=== PATIENT | female | born 1980 | race Caucasian/White ===

== ENCOUNTER → 2018-03-21 14:01 | Outpatient (CLI) | payer BC, SELFPAY ==
--- NOTE | 2018-03-21 14:27 | NVE_ITS ---
Venous Exam Indications: 729.5 Pain in limb. Pt has a visible, palable knot by right kim, no injury. IMPRESSIONS 1. There is no evidence of significant Reflux. 2. No evidence of deep or superficial vein thrombosis involving the right lower extremity Right lower extremity venous duplex evaluation. Doppler flow study including spectral analysis, color and mccain scale imaging. Location: Vascular laboratory. Patient status: Outpatient. Tables: Venous flow and imaging: + +-------+ + Location Overall Flow properties + +-------+ + Right common femoral Patent Normal phasicity; spontaneous; normal augmentation; compressible + +-------+ + Right saphenofemoral junction Patent Compressible + +-------+ + Right profunda femoral Patent Compressible + +-------+ + Right femoral Patent Normal phasicity; spontaneous; normal augmentation; compressible + +-------+ + Right greater saphenous Patent Normal phasicity; spontaneous; normal augmentation; compressible + +-------+ + Right popliteal Patent Normal phasicity; spontaneous; normal augmentation; compressible + +-------+ + Right posterior tibial Patent Compressible + +-------+ + Right peroneal Patent Compressible + +-------+ + Right gastrocnemius Patent Compressible + +-------+ + Right soleal Patent Compressible + +-------+ + (Report amended ) Electronically signed by: Camilo Tran [id number]
== END ==
PROVIDERS: PCP Family Medicine; Visit Provider Nurse Practitioner Family
DX: R22.40 Localized swelling, mass and lump, unspecified lower limb (principal)
CPT/HCPCS: 93971

== ENCOUNTER 2018-09-24 16:13 | Inpatient (IN) ==
[2018-09-24 17:01] LABS: Basophils % 0.3 % (0.1-2.0); Eosinophils # 0.1 K/mm3 (0.0-0.4); Eosinophils % 1.2 % (0.1-12.0); Hematocrit 43.2 % (37.0-47.0); Hemoglobin 14.2 g/dL (12.2-16.2); Lymphocytes # 3.1 K/mm3 (0.7-4.5); Lymphocytes % 31.4 % (10-50); Mean Corpuscular HGB Conc 32.9 g/dL (31.8-35.4); Mean Corpuscular Hemoglobin 30.1 pg (27.0-31.2); Mean Corpuscular Volume 91.6 fl (81-99); Mean Platelet Volume 6.5 fl (7.4-10.4); Monocytes # 0.4 K/mm3 (0.1-1.0); Monocytes % 4.1 % (1.7-9.3); Neutrophils # 6.3 K/mm3 (1.8-7.8); Neutrophils % 63.1 % (37.0-80.0); Platelet Count 353 K/mm3 (142-424); Red Blood Count 4.71 M/mm3 (4.20-5.40); Red Cell Distribution Width 12.6 % (11.5-17.5); White Blood Count 9.9 K/mm3 (4.8-10.8)
[2018-09-24 17:14] LABS: Albumin/Globulin Ratio 1.1 (1.1-1.8); Anion Gap 14.1 mEq/L (5-15); Bilirubin,Total 0.5 mg/dL (0.2-1.0); Calcium 8.4 mg/dL (8.5-10.1); Globulin 3.7 gm/dl (1.3-3.2); Potassium 4.1 mmoL/L (3.5-5.1); Total Protein,Serum 7.7 gm/dL (6.4-8.2)
--- NOTE | 2018-09-24 18:05 | Emergency Department Note ---
ED Disposition Condition on Discharge: Fair - Critical Care Critical Care Time: No <Timmy Padilla - Last Filed: 09/24/18 20:44> Condition on Discharge: Fair <KasiafrankieKendall - Last Filed: 09/24/18 22:20> Clinical Impression: Sinus headache, History of meningitis, Meningitis Disposition: Still a Patient Attestation: On 09/24/18, the high probability of a clinically significant, sudden or life threatening deterioration of the following system(s) required my full and direct attention, intervention and personal management. The time I documented below is in addition to time spent performing reported procedures but includes the following listed in this critical care notation. Medical Decision Making - Cristian Inquiry Pt receiving controlled substance: No Cristian was queried for this patient: No - Lab Data Result diagrams: 09/24/18 16:47 09/24/18 16:47 - CT Data CT Scan: Head Time Received: 19:[address] Reviewed: Yes: I have viewed the radiologist's interpretation Preliminary Findings: Normal/NAD <Timmy Padilla - Last Filed: 09/24/18 20:44> - Lab Data Result diagrams: 09/24/18 16:47 09/24/18 16:47 - Physician Consults Physician Consulted: Yue hanson [facility] Time: 22:00 Reason -: Admission Comment/Response: Agrees to admit the patient to the hospital. We discussed the patient's clinical information, including history, exam, laboratory and radiology results and ED course. Per hospital procedure, I will write temporary bridge inpatient orders on the patient. Specific orders requested by the admitting physician: Antibiotics and pain medication pending cultures <Kendall Romero - Last Filed: 09/24/18 22:20> Vital Signs: 09/24/18 16:32 09/24/18 16:43 09/24/18 19:26 Temperature 98.5 F 98.5 F Temperature Source Oral Oral Pulse Rate [Orthostatic Lying Right Radial] 74 Pulse Rate [Orthostatic Sitting Right Radial] 85 Pulse Rate [Orthostatic Standing Right Radial] 97 H Pulse Rate [Right Brachial] 107 H 107 H Respiratory Rate 20 20 Blood Pressure [Left Arm] 140/87 Blood Pressure [Orthostatic Lying Left Arm] 127/82 Blood Pressure [Orthostatic Sitting Left Arm] 140/90 Blood Pressure [Right Arm] 142/105 H 142/105 H Blood Pressure Mean [Right Arm] 117 117 Blood Pressure Source [Right Arm] Automatic Cuff Automatic Cuff Blood Pressure Position [Right Arm] Sitting Sitting 02 Sat by Pulse Oximetry 99 99 Oxygen Delivery Method Room Air Room Air 09/24/18 19:42 Temperature Temperature Source Pulse Rate [Orthostatic Lying Right Radial] Pulse Rate [Orthostatic Sitting Right Radial] Pulse Rate [Orthostatic Standing Right Radial] Pulse Rate [Right Brachial] 77 Respiratory Rate 12 Blood Pressure [Left Arm] Blood Pressure [Orthostatic Lying Left Arm] Blood Pressure [Orthostatic Sitting Left Arm] Blood Pressure [Right Arm] 132/77 Blood Pressure Mean [Right Arm] 95 Blood Pressure Source [Right Arm] Automatic Cuff Blood Pressure Position [Right Arm] Supine 02 Sat by Pulse Oximetry 100 Oxygen Delivery Method Room Air - Lab Data Lab Results 09/24/18 16:47: WBC 9.9, RBC 4.71, Hgb 14.2, Hct 43.2, MCV 91.6, MCH 30.1, MCHC 32.9, RDW 12.6, Plt Count 353, MPV 6.5 L, Neut % (Auto) 63.1, Lymph % (Auto) 31.4, [place] % (Auto) 4.1, Eos % (Auto) 1.2, Baso % (Auto) 0.3, Neut # (Auto) 6.3, Lymph # (Auto) 3.1, [place] # (Auto) 0.4, Eos # (Auto) 0.1, Baso # (Auto) 0.0 09/24/18 16:47: Sodium 140, Potassium 4.1, Chloride 104, Carbon Dioxide 26, Anion Gap 14.1, BUN 9, Creatinine 0.75, Estimated Creat Clear 91, Estimated GFR 86, Est GFR ( Amer) 105, Glucose 98, Calcium 8.4 L, Total Bilirubin 0.5, AST 12 L, ALT 22, Alkaline Phosphatase 50, Total Protein 7.7, Albumin 4.0, Globulin 3.7 H, Albumin/Globulin Ratio 1.1 09/24/18 16:47: Serum HCG, Qual Negative 09/24/18 20:40: CSF Volume 10, CSF Appearance Clear, CSF WBC 249 H, CSF RBC 6, CSF Mononuclear WBCs % 98, CSF Polynuclear WBCs % 2 09/24/18 20:40: CSF Total Protein 87.2 H 09/24/18 20:40: CSF Glucose 48 09/24/18 22:05: Urine Color Yellow, Urine Appearance Sl cloudy, Urine pH 6.5, Ur Specific [place] 1.010, Urine Protein Negative, Urine Glucose (UA) Negative, Urine Ketones Negative, Urine Blood Negative, Urine Nitrate Negative, Urine Bilirubin Negative, Urine Urobilinogen 0.2, Ur Leukocyte Esterase 1+ A, Urine WBC 20-50, Ur Squamous Epith Cells 10-20, Urine Bacteria 2+ Orders (Tests/Meds): ED MEDICATIONS Generic Name Dose Route Start Last Admin Trade Name Homa PRN Reason Stop Dose Admin Sodium Chloride 1,000 mls @ 999 mls/hr 09/24/18 17:00 09/24/18 17:46 Sod Chlor 0.9% 1000ml Bag IV 09/24/18 18:00 999 mls/hr .Q1H1M ZULLY Administration Sodium Chloride 1,000 mls @ 999 mls/hr 09/24/18 20:45 09/24/18 20:56 Sod Chlor 0.9% 1000ml Bag IV 09/24/18 21:45 999 mls/hr .Q1H1M ZULLY Administration Ceftriaxone Sodium 2 gm/ 100 mls @ 200 mls/hr 09/24/18 22:15 Sodium Chloride IV 10/08/18 22:14 Q12H ZULLY Protocol Miscellaneous 1 each 09/24/18 22:15 Vancomycin Consult Request NOTAPPLIC 09/25/18 10:11 CONSULT PHARMACY ZULLY Discontinued Medications Generic Name Dose Route Start Last Admin Trade Name Homa PRN Reason Stop Dose Admin Butorphanol Tartrate 1 mg 09/24/18 20:44 09/24/18 20:55 Stadol 1mg/1ml Vial IV 09/24/18 20:45 1 mg ONCE ONE Administration Morphine Sulfate 2 mg 09/24/18 19:38 09/24/18 19:43 Morphine 2mg/Ml Syringe IV 09/24/18 19:39 2 mg ONCE ONE Administration ORDERS Category Date Time Status UA [Urinalysis and Microscopic] Stat Lab 09/24/18 22:05 Ordered CSF Culture & Gram Stain Stat Micro 09/24/18 20:40 Ordered Urine Culture Stat Micro 09/24/18 22:05 Received - CT Data Findings Narrative: FINDINGS: No acute intracranial findings. No significant change since 2009 CT head No midline shift, nor mass effect,. No intracranial hemorrhage, nor hydrocephalus,. No subdural nor Extra-axial fluid collection is evident. . Ventricles and basal cisterns appear normal. Posterior fossa is unremarkable. Normal mccain-white matter interface. The calvarium has an unremarkable appearance. Skull intact mastoid air cells are well-developed and clear. No mastoid effusion. Visualized paranasal sinuses clear. No sinus air-fluid levels.. IMPRESSION: Negative CT head without contrast. No acute intracranial finding (Timmy Padilla) Medical Decision Narrative: FINDINGS: No acute intracranial findings. No significant change since 2009 CT head No midline shift, nor mass effect,. No intracranial hemorrhage, nor hydrocephalus,. No subdural nor Extra-axial fluid collection is evident. . Ventricles and basal cisterns appear normal. Posterior fossa is unremarkable. Normal mccain-white matter interface. The calvarium has an unremarkable appearance. Skull intact mastoid air cells are well-developed and clear. No mastoid effusion. Visualized paranasal sinuses clear. No sinus air-fluid levels.. IMPRESSION: Negative CT head without contrast. No acute intracranial finding Patient continued to have bifrontal and retro-orbital headache, she was given Toradol with no relief, she started on oxygen 6 L nasal cannula with no improvement, she was given morphine 2mg and we discussed the risks and benefits of obtaining a lumbar puncture. Occluding diagnosis of meningitis risks of hemorrhage infection nerve damage and spinal headache. Lumbar puncture procedure; Under sterile technique and local anesthesia using a 20 G spinal needle, using L4-L5 interspinous space obtained 8 cc of clear CSF with the out pressure in 4 tubes, samples were sent to the lab for CSF cell count, Gram stain, glucose and total protein. She was instructed to lay flat on her back for another hour start was given an additional 1 L of normal saline and 1 mg of Stadol for pain. I discussed her with the incoming physician Dr. Romero will follow up on her CSF results and make a disposition. (Timmy Padilla) General Adult HPI - General Mode of Arrival: Family Vehicle Limitations: No Limitations Description of Symptoms (Recalled from ER Triage Doc. by RN): C/O SEVERE HEADACHE,DIZZINESS, PAIN IN NECK/BACK AND CHEST MICHELLE WITH CHANGE IN MOVEMENT. WORST HEADACHE EVER. HX MENIGITIS AND THIS FEELS SIMILAR TO THAT. SINCE 5 AM - History of Present Illness Onset (ago): hour(s) (15 hours ago.) Consistency: constant Relieving factors: none Exacerbating factors: none Associated symptoms: denies other symptoms Treatments prior to arrival: none <Timmy Padilla - Last Filed: 09/24/18 20:44> <Kendall Romero - Last Filed: 09/24/18 22:20> - General Chief complaint: PAIN Stated complaint: Headache, nausea Time Seen by Provider: 09/24/18 16:45 - History of Present Illness HPI narrative: 37 years old white female with history of chronic migraine and one episode of meningitis in 2009. At 3 AM this morning she was awakened with a bilateral frontal throbbing headache without photophobia or phonophobia or nausea. The headache is worse with changing positions from laying to sitting and sitting to standing. Patient complains of mild neck stiffness. Denies having fever or chills numbness or tingling involving upper or lower extremity there is no loss of urine or bowel control. There is no chest pain palpitation or shortness of breath. There is no nausea vomiting or diarrhea. No dysuria hematuria or frequency. (Timmy Padilla) - Related Data Home Medications Medication Instructions Recorded Confirmed Linaclotide [Linzess] 290 mcg PO DAILY 03/19/18 03/19/18 Allergies Allergy/AdvReac Type Severity Reaction Status Date / Time No Known Allergies Allergy Verified 03/19/18 19:37 [facility] History - Hepatitis A Screen Drug use history?: No High risk sexual behaviors?: No History of sexually transmitted infection?: No Currently employed?: No Childcare worker?: No Do you have indoor plumbing?: Yes Do you have electricity?: Yes I have reviewed the patient's past medical history: Yes Medical History: Denies:: Cancer, Diabetes Mellitus Type 1, Diabetes Mellitus Type 2, Hypertension, MRSA Other Surgeries: Yes: Amputation: No Fractures: No - Social History Smoking Status: Never smoker Alcohol Intake: never - Psychiatric History Expresses thoughts of harming self/others: None Suicide Plan Description: No Plan <Timmy Padilla - Last Filed: 09/24/18 20:44> - Hepatitis A Screen Attestation statement:: This patient has been screened for Hepatitis A risk factors. ROS Obtained: Yes All systems reviewed & no additional complaints <Timmy Padilla - Last Filed: 09/24/18 20:44> Physical Exam - General General appearance: alert, in no apparent distress - Head Head exam: atraumatic, normocephalic, normal inspection - Eye Eye exam: Present: normal appearance, PERRL, EOMI. Absent: scleral icterus, nystagmus - ENT ENT exam: Present: normal exam, normal oropharynx, mucous membranes moist, TM's normal bilaterally, normal external ear exam - Neck Neck exam: Present: normal inspection, full ROM, trachea midline, other (No neck stiffness or rigidity.). Absent: tenderness, meningismus, lymphadenopathy - Chest Chest inspection: Present: normal inspection, symmetric chest wall rise. Absent: tenderness - Respiratory Respiratory exam: Present: normal lung sounds bilaterally. Absent: respiratory distress - Cardiovascular Cardiovascular exam: Present: regular rate, normal rhythm, normal heart sounds. Absent: JVD - Abdominal Exam Abdominal exam: Present: soft, normal bowel sounds. Absent: distention, tenderness, guarding, rebound, rigidity - Extremities Exam Extremities exam: Present: normal inspection, full ROM, normal capillary refill. Absent: tenderness, pedal edema, joint swelling, calf tenderness - Back Exam Back exam: Present: normal inspection. Absent: tenderness, CVA tenderness (R), CVA tenderness (L) - Neurological Exam Neurological exam: Present: alert, oriented X3, CN II-XII intact, motor sensory deficit, reflexes normal - Psychiatric Psychiatric exam: Present: normal affect, normal mood - Skin Skin exam: Present: warm, dry, intact, normal color - Lymphatic Lymphatic Findings: no adenopathy <Timmy Padilla - Last Filed: 09/24/18 20:44>
[2018-09-24 21:28] LABS: Appearance,CSF Clear (Clear)
[2018-09-24 22:03] LABS: Red Blood Cell,CSF 6 cells/uL (0); White Blood Cell,CSF 249 cells/uL (0-5)
[2018-09-24 22:04] LABS: Mononuclear WBCs,CSF 98 %; Polynuclear WBCs,CSF 2 %
[2018-09-24 22:09] LABS: Microscopic, Urine URINE MICROSCOPIC (MICROSCOPIC)
[2018-09-24 22:10] LABS: Appearance,Urine SL CLOUDY (Clear); Bilirubin,Urine Negative (Negative); Blood, Urine Negative (Negative); Color,Urine YELLOW (Yellow); Glucose,Urine (UA) Negative (Negative); Ketones,Urine Negative (Negative); Leukocyte Esterase,Urine 1+ (Negative); PH,Urine 6.5 (5.0-8.5); Protein,Urine Negative (Negative); Urobilinogen,Urine 0.2 EU/dl (0.2)
[2018-09-24 22:14] LABS: Bacteria,Urine 2+ /lpf; WBC,Urine 20-50 #/hpf (0-3)
--- NOTE | 2018-09-25 11:21 | Pharmacy Consult Notes ---
[facility] Pharmacy VTE Monitoring - Patient Demographics Admission date: 09/24/18 Report Date: 09/25/18 Time: 11:21 Allergies/Adverse Reactions: Patient Allergies No Known Allergies Allergy (Verified 03/19/18 19:37) Height: 1.6 m Weight: 40.94 kg Patient Problems: Current Active Problems Sinus headache (Acute) History of meningitis (Acute) Meningitis (Acute) - VTE Risk Labs: VTE Related Lab Results Hgb 14.2 g/dL (12.2-16.2) 09/24/18 16:47 Hct 43.2 % (37.0-47.0) 09/24/18 16:47 Plt Count 353 K/mm3 (142-424) 09/24/18 16:47 BUN 9 mg/dL (7-18) 09/24/18 16:47 Creatinine 0.75 mg/dL (0.55-1.02) 09/24/18 16:47 Estimated Creat Clear 91 mL/min (50-200) 09/24/18 16:47 Was VTE Risk Assessment Performed: Yes VTE Score: 0 VTE Risk Level: Very Low Risk - Prophylaxis VTE Prophylaxis Ordered?: Yes Types of VTE Prophylaxis: TEDS Knee High Location of Applied Device: Bilateral Lower Extremeties
--- NOTE | 2018-09-25 11:24 | Pharmacy Consult Notes ---
- Pharmacy Consult Date: 09/25/18 Time: 11:22 Referring provider: DR. NORWOOD Reason for Consult:: VANCOMYCIN DOSING Allergies and ADEs:: Allergies Allergy/AdvReac Type Severity Reaction Status Date / Time No Known Allergies Allergy Verified 03/19/18 19:37 Home Medications:: Home Medications Medication Instructions Recorded Confirmed Type Linaclotide [Linzess] 290 mcg PO DAILY 03/19/18 09/24/18 History Height: 1.6 m Weight: 40.94 kg Laboratory Results:: Laboratory Results - last 24 hr 09/24/18 16:47: WBC 9.9, RBC 4.71, Hgb 14.2, Hct 43.2, MCV 91.6, MCH 30.1, MCHC 32.9, RDW 12.6, Plt Count 353, MPV 6.5 L, Neut % (Auto) 63.1, Lymph % (Auto) 31.4, [place] % (Auto) 4.1, Eos % (Auto) 1.2, Baso % (Auto) 0.3, Neut # (Auto) 6.3, Lymph # (Auto) 3.1, [place] # (Auto) 0.4, Eos # (Auto) 0.1, Baso # (Auto) 0.0 09/24/18 16:47: Sodium 140, Potassium 4.1, Chloride 104, Carbon Dioxide 26, Anion Gap 14.1, BUN 9, Creatinine 0.75, Estimated Creat Clear 91, Estimated GFR 86, Est GFR ( Amer) 105, Glucose 98, Calcium 8.4 L, Total Bilirubin 0.5, AST 12 L, ALT 22, Alkaline Phosphatase 50, Total Protein 7.7, Albumin 4.0, Globulin 3.7 H, Albumin/Globulin Ratio 1.1 09/24/18 16:47: Serum HCG, Qual Negative 09/24/18 20:40: CSF Volume 10, CSF Appearance Clear, CSF WBC 249 H, CSF RBC 6, CSF Mononuclear WBCs % 98, CSF Polynuclear WBCs % 2 09/24/18 20:40: CSF Total Protein 87.2 H 09/24/18 20:40: CSF Glucose 48 09/24/18 22:05: Urine Color Yellow, Urine Appearance Sl cloudy, Urine pH 6.5, Ur Specific [place] 1.010, Urine Protein Negative, Urine Glucose (UA) Negative, Urine Ketones Negative, Urine Blood Negative, Urine Nitrate Negative, Urine Bilirubin Negative, Urine Urobilinogen 0.2, Ur Leukocyte Esterase 1+ A, Urine WBC 20-50, Ur Squamous Epith Cells 10-20, Urine Bacteria 2+ Medical History: Denies:: Cancer, Diabetes Mellitus Type 1, Diabetes Mellitus Type 2, Hypertension, MRSA Assessment and Plan - Assessment and plan all Dx Assessment and Plan for all problems:: BASED ON PATIENT FACTORS, RECOMMEND VANCOMYCIN 1 GM IV ONCE, FOLLOWED BY VANCOMYCIN 750 MG IV Q18H. PHARMACY WILL MONITOR DAILY AND ADJUST APPROPRIATE.
--- NOTE | 2018-09-25 12:01 | History & Physical Report ---
*Admission Date: 09/24/18 *Chief complaint: Headache *History of present illness: 37 years old white female with history of chronic migraine and one episode of viral meningitis in 2009 presented to our ED after waking up at 3 AM in the morning with bilateral frontal headache. She denies any photophobia, phon ophobia and nausea at that time. She mentions that her headache is worse with changing position from sitting to laying to standing. She also complained of mild neck stiffness upon admission. Denies having any fever or chills, any neurological symptoms on the upper and lower extremity. She also denies having any loss of urine or bowel control. He was evaluated in our ED with a CT scan and lumbar puncture. CT scan was normal where as the lumbar puncture revealed increased white blood count with mild elevation of glucose. She was started on a broad-spectrum antibiotics to cover for bacterial meningitis although this is very unlikely. She was also started on routine pain medication for her headache. During exam today, she mentions that her headache is somewhat better but not completely resolved yet. I discussed the possibility of stopping the antibiotics as her culture so far is negative. She is probably having another episode of viral meningitis at this time. [facility] History Medical History: Denies:: Cancer, Diabetes Mellitus Type 1, Diabetes Mellitus Type 2, Hypertension, MRSA Other Surgeries: Yes: Amputation: No Fractures: No - *Social History Educational Level: Completed College Smoking Status: Never smoker Alcohol Intake: never Occupational Status: unemployed Housing: house Household Members: children - Psychiatric History Expresses thoughts of harming self/others: None Suicide Plan Description: No Plan Review of Systems - Constitutional Reports body ache(s), Reports weakness - Eyes Denies blurry vision, Denies change in vision - ENT Reports headache(s) (Bilateral frontal region), Denies abnormal hearing - *Cardiovascular Denies chest pain - *Respiratory Denies chest congestion - *Gastrointestinal Denies abdominal pain - *Genitourinary Denies abnormal periods - *Musculoskeletal Denies abnormal walking - Integumentary/Breasts Denies acne - *Neurologic Reports dizziness (When she tries to walk) - Psychiatric Reports abnormal sleep pattern (Unable to sleep because of her headache) - Endocrine Denies cold intolerance - Hematologic/Lymphatic Denies easy bleeding - Allergic/Immunologic Denies GI upset with certain foods Meds Home Medications Medication Instructions Recorded Confirmed Type Linaclotide [Linzess] 290 mcg PO DAILY 03/19/18 09/24/18 History Allergies Allergy/AdvReac Type Severity Reaction Status Date / Time No Known Allergies Allergy Verified 03/19/18 19:37 Exam Vital signs and Labs for Last 24 Hours: Temp Pulse Resp BP Pulse Ox 98.9 F 86 19 117/71 97 09/25/18 08:00 09/25/18 08:00 09/25/18 08:00 09/25/18 08:00 09/25/18 08:50 Laboratory Results - last 24 hr 09/24/18 16:47: WBC 9.9, RBC 4.71, Hgb 14.2, Hct 43.2, MCV 91.6, MCH 30.1, MCHC 32.9, RDW 12.6, Plt Count 353, MPV 6.5 L, Neut % (Auto) 63.1, Lymph % (Auto) 31.4, [place] % (Auto) 4.1, Eos % (Auto) 1.2, Baso % (Auto) 0.3, Neut # (Auto) 6.3, Lymph # (Auto) 3.1, [place] # (Auto) 0.4, Eos # (Auto) 0.1, Baso # (Auto) 0.0 09/24/18 16:47: Sodium 140, Potassium 4.1, Chloride 104, Carbon Dioxide 26, Anion Gap 14.1, BUN 9, Creatinine 0.75, Estimated Creat Clear 91, Estimated GFR 86, Est GFR ( Amer) 105, Glucose 98, Calcium 8.4 L, Total Bilirubin 0.5, AST 12 L, ALT 22, Alkaline Phosphatase 50, Total Protein 7.7, Albumin 4.0, Globulin 3.7 H, Albumin/Globulin Ratio 1.1 09/24/18 16:47: Serum HCG, Qual Negative 09/24/18 20:40: CSF Volume 10, CSF Appearance Clear, CSF WBC 249 H, CSF RBC 6, CSF Mononuclear WBCs % 98, CSF Polynuclear WBCs % 2 09/24/18 20:40: CSF Total Protein 87.2 H 09/24/18 20:40: CSF Glucose 48 09/24/18 22:05: Urine Color Yellow, Urine Appearance Sl cloudy, Urine pH 6.5, Ur Specific [place] 1.010, Urine Protein Negative, Urine Glucose (UA) Negative, Urine Ketones Negative, Urine Blood Negative, Urine Nitrate Negative, Urine Bilirubin Negative, Urine Urobilinogen 0.2, Ur Leukocyte Esterase 1+ A, Urine WBC 20-50, Ur Squamous Epith Cells 10-20, Urine Bacteria 2+ I & O for Last 24 hours: Intake & Output 09/22/18 09/23/18 09/24/18 09/25/18 11:59 11:59 11:59 11:59 Intake Total 703 / 703 Balance 703 / 703 Weight 90 lb 4.116 oz Microbiology Reports for the Last 24 Hours: Microbiology 09/24/18 22:05 Urine,Clean Catch Urine Culture - Preliminary 09/24/18 20:40 Cerebral Spinal Fluid Gram Stain - Final - *Routine HEENT Exam Head: Present: normocephalic, scalp tenderness. Absent: CSF rhinorrhea, CSF otorrhea Eye: Present: EOMI, PERRL ENT: Present: mucous membranes moist - *Routine Neck Exam Present: supple, full ROM (mild stiffness noted) - *Routine Respiratory Exam Present: CTA bilaterally - *Routine Cardiovascular Exam Present: RRR - *Routine Abdominal Exam Present: soft, normoactive bowel sounds - *Routine Extremities Exam Present: full ROM - *Routine Skin Exam Present: intact - *Routine Neurological Exam Present: alert, oriented X3 Assessment and Plan (1) Viral meningitis Current visit: Yes Status: Acute Category: Medical Code(s): A87.9 - Viral meningitis, unspecified (2) Chronic headache disorder Current visit: Yes Status: Acute Category: Medical Code(s): R51 - Headache - Assessment and plan all Dx Assessment and Plan for all problems:: We will stop IV antibiotics, will optimize IV pain management.
--- NOTE | 2018-09-26 08:59 | Progress Note ---
<Juli Fernandez - Last Filed: 09/26/18 08:55> Internal Medicine - PN: Subj *Date: 09/26/18 *Time: 08:05 Interval history: The patient is resting quietly in bed with at bedside. She denies any improvement in headache. She was able to eat some breakfast although she notes some intermittent nausea without vomiting. Exam Vital signs and Labs for Last 24 Hours: Temp Pulse Resp BP Pulse Ox 98.4 F 71 16 98/52 L 96 09/26/18 07:57 09/26/18 07:57 09/26/18 07:57 09/26/18 07:57 09/26/18 07:57 Laboratory Results - last 24 hr 09/24/18 22:05: Urine Color Yellow, Urine Appearance Sl cloudy, Urine pH 6.5, Ur Specific [place] 1.010, Urine Protein Negative, Urine Glucose (UA) Negative, Urine Ketones Negative, Urine Blood Negative, Urine Nitrate Negative, Urine Bilirubin Negative, Urine Urobilinogen 0.2, Ur Leukocyte Esterase 1+ A, Urine WBC 20-50, Ur Squamous Epith Cells 10-20, Urine Bacteria 2+ I & O for Last 24 hours: Intake & Output 09/23/18 09/24/18 09/25/18 09/26/18 11:59 11:59 11:59 11:59 Intake Total 703 / 703 3008 / 3008 Balance 703 / 703 3008 / 3008 Weight 90 lb 4.116 oz Microbiology Reports for the Last 24 Hours: Microbiology 09/24/18 22:05 Urine,Clean Catch Urine Culture - Preliminary Gram Negative Rods 09/24/18 20:40 Cerebral Spinal Fluid Gram Stain - Final 09/24/18 20:40 Cerebral Spinal Fluid CSF Culture - Preliminary NO GROWTH AFTER 24 HOURS - Constitutional no acute distress - *Routine HEENT Exam Head: Present: normocephalic, atraumatic ENT: Present: mucous membranes moist - *Routine Respiratory Exam Present: CTA bilaterally - *Routine Cardiovascular Exam Present: RRR - *Routine Abdominal Exam Present: soft, normoactive bowel sounds. Absent: tenderness, distended, rebound, guarding, firm, rigid, organomegaly, mass - *Routine Extremities Exam Present: edema, full ROM, pulses intact. Absent: calf tenderness - *Routine Neurological Exam Present: alert, oriented X3, moving all extremities, normal speech. Absent: facial asymmetry Assessment and Plan (1) Viral meningitis Current visit: Yes Status: Acute Category: Medical Code(s): A87.9 - Viral meningitis, unspecified (2) Chronic headache disorder Current visit: Yes Status: Acute Category: Medical Code(s): R51 - Headache - Assessment and plan all Dx Assessment and Plan for all problems:: Continue current care. Further per Dr. Turner. <Shahana Turner - Last Filed: 09/26/18 10:08> Exam Vital signs and Labs for Last 24 Hours: Temp Pulse Resp BP Pulse Ox 98.4 F 71 16 98/52 L 96 09/26/18 07:57 09/26/18 07:57 09/26/18 07:57 09/26/18 07:57 09/26/18 07:57 Laboratory Results - last 24 hr 09/24/18 22:05: Urine Color Yellow, Urine Appearance Sl cloudy, Urine pH 6.5, Ur Specific [place] 1.010, Urine Protein Negative, Urine Glucose (UA) Negative, Urine Ketones Negative, Urine Blood Negative, Urine Nitrate Negative, Urine Bilirubin Negative, Urine Urobilinogen 0.2, Ur Leukocyte Esterase 1+ A, Urine WBC 20-50, Ur Squamous Epith Cells 10-20, Urine Bacteria 2+ I & O for Last 24 hours: Intake & Output 09/23/18 09/24/18 09/25/18 09/26/18 11:59 11:59 11:59 11:59 Intake Total 703 / 703 3008 / 3008 Balance 703 / 703 3008 / 3008 Weight 90 lb 4.116 oz Microbiology Reports for the Last 24 Hours: Microbiology 09/24/18 22:05 Urine,Clean Catch Urine Culture - Preliminary Gram Negative Rods 09/24/18 20:40 Cerebral Spinal Fluid Gram Stain - Final 09/24/18 20:40 Cerebral Spinal Fluid CSF Culture - Preliminary NO GROWTH AFTER 24 HOURS Assessment and Plan (1) Viral meningitis Current visit: Yes Status: Acute Category: Medical Code(s): A87.9 - Viral meningitis, unspecified (2) Chronic headache disorder Current visit: Yes Status: Acute Category: Medical Code(s): R51 - Headache - Assessment and plan all Dx Assessment and Plan for all problems:: will switch her pain medication to PO and see if she tolerates her headache. Will need Neurology referral for chronic headache control in the future. Possible dc this PM with pain meds.
--- NOTE | 2018-09-26 11:59 | Discharge Summary ---
General - General Admission date:: 09/24/18 Discharge date: 09/26/18 HPI HPI: 37 years old white female with history of chronic migraine and one episode of viral meningitis in 2009 presented to our ED after waking up at 3 AM in the morning with bilateral frontal headache. She denies any photophobia, phonophobia and nausea at that time. She mentions that her headache is worse with changing position from sitting to laying to standing. She also complained of mild neck stiffness upon admission. Denies having any fever or chills, any neurological symptoms on the upper and lower extremity. She also denies having any loss of urine or bowel control. He was evaluated in our ED with a CT scan and lumbar puncture. CT scan was normal where as the lumbar puncture revealed increased white blood count with mild elevation of glucose. She was started on a broad-spectrum antibiotics to cover for bacterial meningitis although this is very unlikely. She was also started on routine pain medication for her headache. During exam today, she mentions that her headache is somewhat better but not completely resolved yet. I discussed the possibility of stopping the antibiotics as her culture so far is negative. She is probably having another episode of viral meningitis at this time. Hospital Course Hospital Course: Patient is a 37-year-old female who was admitted to our hospital for headache that was intractable with some nausea. She had a LP done in the ED which showed viral meningitis and cultures are negative at 48 hours. Her pain was controlled with IV pain medication during the hospital stay. She was transitioned over to p.o. pain medication and she tolerated her headache with the Percocet 10 mg / 325 mg. She was discharged on 09/26/2018 upon being medically stable and her head headache being controlled with p.o. pain medication. She was given a prescription of Percocet for a week, dispense 20 pills. She was also given a prescription of Zofran prn nausea. I also gave her samples of Linzess for a week's worth and refill for her for a week. Objective Vital signs: Temp Pulse Resp BP Pulse Ox 98.4 F 71 16 98/52 L 96 09/26/18 07:57 09/26/18 07:57 09/26/18 07:57 09/26/18 07:57 09/26/18 07:57 - *Routine HEENT Exam Head: Present: normocephalic Eye: Present: EOMI ENT: Present: mucous membranes moist - *Routine Neck Exam Present: supple, full ROM - *Routine Respiratory Exam Present: CTA bilaterally - *Routine Cardiovascular Exam Present: RRR - *Routine Abdominal Exam Present: soft, normoactive bowel sounds - *Routine Extremities Exam Absent: edema - *Routine Skin Exam Present: intact - *Routine Neurological Exam Present: alert, oriented X3 - Routine Psychiatric Exam Present: normal affect Results Labs on day of discharge: Labs from last 24 hours 09/24/18 22:05 Urine Color Yellow Urine Appearance Sl cloudy Urine pH 6.5 Ur Specific [place] 1.010 Urine Protein Negative Urine Glucose (UA) Negative Urine Ketones Negative Urine Blood Negative Urine Nitrate Negative Urine Bilirubin Negative Urine Urobilinogen 0.2 Ur Leukocyte Esterase 1+ A Urine WBC 20-50 Ur Squamous Epith Cells 10-20 Urine Bacteria 2+ Preliminary micro results at discharge 09/24/18 22:05 Urine Culture - Preliminary Urine,Clean Catch Gram Negative Rods 09/24/18 20:40 CSF Culture - Preliminary Cerebral Spinal Fluid NO GROWTH AFTER 24 HOURS DS: Diagnosis - Discharge Diagnosis (1) Viral meningitis Status: Acute (2) Chronic headache disorder Status: Acute Discharge Plan - Patient Discharge Instructions ACTIVITY: Continue current activity DIET: continue same diet Patient Instructions: DI for Migraine - Follow up Plan Follow up with: Jose Luis Hollis MD [Primary Care Provider] - 1 week Disposition: Home, Self-Chcf Medications: Home Medications Medication Instructions Recorded Confirmed Type Linaclotide [Linzess] 290 mcg PO DAILY 30 Days cap 09/26/18 Rx Prescriptions/Medication Reconciliation: New Oxycodone HCl/Acetaminophen [Oxycodone W/Apap 325mg Tablet] 1 each PO Q4HP PRN tablet PRN Reason: Moderate To Severe Pain Continue Linaclotide [Linzess] 290 mcg PO DAILY 30 Days cap
== END 2018-09-26 12:18 | disposition home or self-care (01) | DRG 76 ==
LOC: 2ND 16:13 → UTC 16:13 → OBSVTOIN 23:05 → 2ND 23:10
PROVIDERS: ADMIT Emergency Medicine; ATTEND Family Medicine
CPT/HCPCS: 62270; 70450; 80053; 81001; 82945; 84155; 84703; 85025; 87070; 87086; 87088; 87186; 87205; 89051; 96365; 96366; 96367; 96375; 99285; J0595; J2405; J3370

== ENCOUNTER → 2018-12-29 10:20 | Outpatient (CLI) | payer BC, SELFPAY ==
--- NOTE | 2018-12-29 10:24 | XR_ITS ---
XR chest 2V HISTORY: ITS.REASON: CHEST PAIN ORDERING PHYSICIAN: Jose Martin MD PATIENT AGE: 38 years Technique: PA and lateral chest COMPARISON: Previous PA and lateral chest October 2018 FINDINGS: Lungs are clear with nothing definitely acute. There is suggestion of perhaps mild pectus carinatum The cardiomediastinal silhouette and pulmonary vascularity are within normal limits. The lungs are clear without infiltrates, suspicious nodules, or pleural effusions. No acute bony abnormalities. IMPRESSION: Stable chest with nothing definitely acute
== END ==
PROVIDERS: PCP Family Medicine; Visit Provider Family Medicine
DX: R07.9 Chest pain, unspecified (principal)
CPT/HCPCS: 71046; 93005

== ENCOUNTER → 2020-04-02 14:54 | Outpatient (POV) | payer BC, SELFPAY | PROVIDERS: PCP Family Medicine; Visit Provider Dermatology | DX: Z00.00 Encounter for general adult medical examination without abnormal findings (principal) ==

== ENCOUNTER → 2020-08-08 11:49 | Outpatient (CLI) | payer BC, SELFPAY ==
[2020-08-08 14:56] LABS: Basophils % 0.2 % (0.1-2.0); Hematocrit 46.4 % (37.0-47.0); Hemoglobin 15.7 g/dL (12.2-16.2); Lymphocytes # 0.9 K/mm3 (0.7-4.5); Mean Corpuscular HGB Conc 33.7 g/dL (31.8-35.4); Mean Corpuscular Volume 91.9 fl (81-99); Mean Platelet Volume 7.7 fl (7.4-10.4); Monocytes # 0.4 K/mm3 (0.1-1.0); Monocytes % 5.8 % (1.7-9.3); Neutrophils # 4.9 K/mm3 (1.8-7.8); Neutrophils % 79.9 % (37.0-80.0); Platelet Count 220 K/mm3 (142-424); Red Blood Count 5.05 M/mm3 (4.20-5.40); White Blood Count 6.1 K/mm3 (4.8-10.8)
[2020-08-09 15:41] LABS: Covid-19 Nasal PCR Sendout Lex Not Detected
== END ==
PROVIDERS: PCP Family Medicine; Visit Provider Family Medicine
DX: Z03.818 Encounter for observation for suspected exposure to other biological agents ruled out (principal)
CPT/HCPCS: 36415; 85025; U0004

== ENCOUNTER 2021-05-19 15:32 | Emergency (ER) | payer BC, SELFPAY ==
[2021-05-19 15:50] VITALS: BP 142/87; PULSE 117; RESP 16; TEMP 37.1; O2SAT 99; BMI 22.8
[2021-05-19 16:08] LABS: Adenovirus,PCR Not Detected (NotDetected); Bordetella Pertussis Not Detected (NotDetected); Chlamydophila Pneumoniae, PCR Not Detected (NotDetected); Coronavirus 19, PCR Not Detected (NotDetected); Coronavirus 229E Not Detected (NotDetected); Coronavirus NL63 Not Detected (NotDetected); Coronavirus OC43 Not Detected (NotDetected); Coronovirus HKU1,PCR Not Detected (NotDetected); Human Metapneumovirus Not Detected (NotDetected); Influenza A, PCR Not Detected (NotDetected); Influenza AH1, 2009 Not Detected (NotDetected); Influenza AH1, PCR Not Detected (NotDetected); Influenza AH3,PCR Not Detected (NotDetected); Influenza B, PCR Not Detected (NotDetected); Mycoplasma Pneumoniae, PCR Not Detected (NotDetected); Parainfluenza 1, PCR Not Detected (NotDetected); Parainfluenza 2, PCR Not Detected (NotDetected); Parainfluenza 3, PCR Not Detected (NotDetected); Parainfluenza 4, PCR Not Detected (NotDetected); Rhinovirus/Enterovirus Not Detected (NotDetected)
--- NOTE | 2021-05-19 16:15 | HMH.EDUTC ---
[facility] [place] Disposition Clinical Impression: Viral syndrome Pharyngitis Qualifiers: Pharyngitis/tonsillitis etiology: unspecified etiology Qualified Code(s): J02.9 - Acute pharyngitis, unspecified Disposition: Home, Self-Care Condition on Discharge: Good Instructions: DI for Pharyngitis/Tonsillopharyngitis -- Adult, DI for Viral Syndrome Additional Instructions: Drink plenty of fluids. Take tylenol or ibuprofen for pain or fever. Take the medications as directed. Follow up with your regular doctor. GO TO THE ER FOR ANY WORSENING SYMPTOMS Quarantine until you know the results of your covid-19 test. If it is positive, the health department should call you and give you further instructions about your length of Quarantine and other thing. Prescriptions: Ondansetron [Zofran 4mg ODT] 4 mg PO Q8HP PRN #20 tab.rapdis PRN Reason: Nausea Transmission Status: Received by [id number] Cefdinir [Omnicef 300mg Capsule] 300 mg PO BID #20 cap Transmission Status: Received by [id number] predniSONE [Prednisone 20mg Tab] 20 mg PO BID 4 Days #8 tab Transmission Status: Received by [facility] Referrals: Jose Martin MD [Primary Care Provider] - Forms: Work/School Release Time of Disposition: 16:23 Medical Decision Making - Medical Records Medical records reviewed: No: I reviewed the patient's medical records. - Cristian Inquiry Pt receiving controlled substance: No Vital Signs: 05/19/21 15:50 05/19/21 16:31 Temperature 98.7 F 98.7 F Temperature Source Oral Pulse Rate 78 Pulse Rate [Left Radial] 117 H Respiratory Rate 16 16 Blood Pressure 131/84 Blood Pressure [Left Arm] 142/87 H Blood Pressure Mean [Left Arm] 105 Blood Pressure Source [Left Arm] Automatic Cuff Blood Pressure Position [Left Arm] Sitting 02 Sat by Pulse Oximetry 99 Oxygen Delivery Method Room Air - Lab Data Lab results reviewed: Yes: I reviewed the patient's lab results. Lab Results 05/19/21 15:54: Strep Scn Rapid Clinic Negative Orders (Tests/Meds): ORDERS Category Date Time Status Full Resp Panel w/COVID ([facility]) Routine Lab 05/19/21 15:58 Received Strep Screen Confirmation Stat Micro 05/19/21 15:54 Received [facility] [place] HPI - General Stated complaint: fever,cough,congestion Time Seen by Provider: 05/19/21 16:15 Mode of Arrival: Ambulatory Source of Information: Patient Limitations: No Limitations Description of Symptoms (Recalled from Triage Doc. by RN): Pt c/o cough, congestion, scratchy throat, raspy voice. 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 She is a teacher. She has not been vaccinated against covid-19. - Related Data Home Medications Medication Instructions Recorded Confirmed Linaclotide [Linzess] 290 mcg PO DAILY 11/20/18 11/20/18 Previous Rx's Medication Instructions Recorded Cefdinir [Omnicef 300mg Capsule] 300 mg PO BID #20 cap 05/19/21 Ondansetron [Zofran 4mg ODT] 4 mg PO Q8HP PRN #20 tab.rapdis 05/19/21 predniSONE [Prednisone 20mg 20 mg PO BID 4 Days #8 tab 05/19/21 Tab] Allergies Allergy/AdvReac Type Severity Reaction Status Date / Time No Known Allergies Allergy Verified 11/19/18 23:30 - Worker's Comp Is this a Worker's Comp case?: No [facility] History - Hepatitis A Screen Drug use history?: No High risk sexual behaviors?: No History of sexually transmitted infection?: No Currently employed?: No Childcare worker?: No Do you have indoor plumbing?: Yes Do you
[2021-05-19 16:31] VITALS: BP 131/84; PULSE 78; RESP 16; TEMP 37.1; O2SAT 97
[2021-05-20 09:57] LABS: UTC Strep Screen (Rapid) Negative (Negative)
[2021-05-20 15:48] LABS: Respiratory Syncytial Virus Detected (NotDetected)
== END 2021-05-19 16:32 | disposition home or self-care (01) ==
PROVIDERS: Emergency Provider Nurse Practitioner Family; PCP Family Medicine
DX: J02.9 Acute pharyngitis, unspecified (principal); B97.4 Respiratory syncytial virus as the cause of diseases classified elsewhere
CPT/HCPCS: 87581; 87633; 87798; 87880; 99203; G0463

== ENCOUNTER 2021-08-26 12:17 | Emergency (ER) | payer BC, SELFPAY ==
[2021-08-26 13:39] VITALS: BP 114/59; PULSE 84; RESP 14; TEMP 36.9; O2SAT 99; BMI 23.8
--- NOTE | 2021-08-26 14:10 | HMH.EDUTC ---
[facility] [place] Disposition Clinical Impression: Exposure to COVID-19 virus Asthma Qualifiers: Asthma severity: unspecified severity Asthma persistence: unspecified Asthma complication type: unspecified Qualified Code(s): J45.909 - Unspecified asthma, uncomplicated Low back strain Qualifiers: Encounter type: initial encounter Qualified Code(s): S39.012A - Strain of muscle, fascia and tendon of lower back, initial encounter Disposition: Home, Self-Care Condition on Discharge: Good Instructions: DI for Asthma -- Adult, DI for COVID-19 (Suspected or Confirmed ), Preventing the Spread of Coronavirus Discharge Instructions Additional Instructions: Don't start the antibiotics and steroids unless you feel like you need them. Drink plenty of fluids. Take tylenol or ibuprofen for pain or fever. Take the medications as directed. Follow up with your regular doctor. GO TO THE ER FOR ANY WORSENING SYMPTOMS Quarantine until you know the results of your covid-19 test. If it is positive, the health department should call you and give you further instructions about your length of Quarantine and other things. Notify your school or workplace of your results and follow their instructions regarding return to work/school. The muscle relaxer (cyclobenzaprine--Flexeril) will make you drowsy, so don't drive or operate heavy machinery after taking it. Prescriptions: Albuterol Sulfate [Albuterol Sulfate Hfa] 2 puffs IH Q6HP PRN 30 Days #1 each PRN Reason: Shortness Of Breath Transmission Status: Received by [facility] Cyclobenzaprine HCl [Cyclobenzaprine 10mg Tab] 10 mg PO BIDP PRN #20 tab PRN Reason: Muscle Spasm Transmission Status: Received by [facility] methylPREDNISolone [Medrol] 4 mg PO DIRECTED 6 Days #21 packet Transmission Status: Received by [facility] Azithromycin [Z-Chava 250mg Tab*] 250 mg PO UD DOSE PK #6 tab Transmission Status: Received by [facility] Referrals: Jose Martin MD [Primary Care Provider] - Forms: Work/School Release Time of Disposition: 14:12 Medical Decision Making - Medical Records Medical records reviewed: No: I reviewed the patient's medical records. - Cristian Inquiry Pt receiving controlled substance: No Vital Signs: 08/26/21 13:39 08/26/21 14:18 Temperature 98.5 F 98.5 F Temperature Source Oral Pulse Rate 84 Pulse Rate [Left] 84 Respiratory Rate 14 14 Blood Pressure 114/59 L Blood Pressure [Right Arm] 114/59 L Blood Pressure Mean [Right Arm] 77 02 Sat by Pulse Oximetry 99 - Lab Data Lab results reviewed: Yes: I reviewed the patient's lab results. [facility] [place] HPI - General Stated complaint: covid test and treated for symptoms Time Seen by Provider: 08/26/21 14:00 Mode of Arrival: Ambulatory Source of Information: Patient Limitations: No Limitations Description of Symptoms (Recalled from Triage Doc. by RN): pt was exposed to covid positive this am. asymptomatic. HEENT Symptoms (Recalled from RN notes): No Resp Symptoms (Recalled from RN notes): No Skin Symptoms (Recalled from RN notes): No MS Symptoms (Recalled from RN notes): No Functional Status (Recalled from RN notes): wnl - History of Present Illness Provider Complaint: She was exposed to covid. She denies any symptoms. - Related Data Home Medications Medication Instructions Recorded Confirmed Linaclotide [Linzess] 290 mcg PO DAILY 11/20/18 11/20/18 Previous Rx's Medication Instructions Recorded Cefdinir [Omnicef 300mg Capsule] 300 mg PO BID #20 cap 05/19/21 Ondansetron [Zofran 4mg ODT] 4 mg PO Q8HP PRN #20 tab.rapdis 05/19/21 predniSONE [Prednisone 20mg 20 mg PO BID 4 Days #8 tab 05/19/21 Tab] Albuterol Sulfate [Albuterol 2 puffs IH Q6HP PRN 30 Days #1 each 08/26/21 Sulfate Hfa] Azithromycin [Z-Chava 250mg Tab*] 250 mg PO UD DOSE PK #6 tab 08/26/21 Cyclobenzaprine HCl 10 mg PO BIDP PRN #20 tab 08/26/21 [Cyclobenzaprine 10mg T
[2021-08-26 14:18] VITALS: BP 114/59; PULSE 84; RESP 14; TEMP 36.9
--- NOTE | 2021-08-27 10:24 | PC.NURSE ---
notified pt of covid swab results
--- NOTE | 2021-08-27 12:20 | PC.NURSE ---
notified pt of positive covid result at this time.
== END 2021-08-26 14:19 | disposition home or self-care (01) ==
PROVIDERS: Emergency Provider Nurse Practitioner Family; PCP Family Medicine
DX: U07.1 COVID-19 (principal); S39.012A Strain of muscle, fascia and tendon of lower back, initial encounter; J45.909 Unspecified asthma, uncomplicated
CPT/HCPCS: 99202; C9803; G0463; U0003; U0005

== ENCOUNTER 2022-10-12 02:58 | Emergency (ER) | payer BC, SELFPAY ==
--- NOTE | 2022-10-12 03:06 | PC.NURSE ---
Dr. Ward at [facility]
--- NOTE | 2022-10-12 03:09 | CT_ITS ---
PROCEDURE INFORMATION: Exam: CT Abdomen And Pelvis Without Contrast Exam date and time: 10/12/2022 3:24 AM Age: 41 years old Clinical indication: Abdominal pain; Flank; Right; Additional info: Right flank pain TECHNIQUE: Imaging protocol: Computed tomography of the abdomen and pelvis without contrast. Radiation optimization: All CT scans at this facility use at least one of these dose optimization techniques: automated exposure control; mA and/or kV adjustment per patient size (includes targeted exams where dose is matched to clinical indication); or iterative reconstruction. COMPARISON: No relevant prior studies available. FINDINGS: Lungs: Lung bases are clear. Liver: Normal. No mass. Gallbladder and bile ducts: Normal. No calcified stones. No ductal dilation. Pancreas: Normal. No ductal dilation. Spleen: Normal. No splenomegaly. Adrenal glands: Normal. No mass. Kidneys and ureters: Severe right hydroureteronephrosis, with a 5 mm calculus in the distal right ureter at the UVJ. At least 6 tiny nonobstructive right renal calculi, measuring up to 2 mm. No left-sided hydronephrosis. At least 5 punctate nonobstructive left renal calculi, measuring up to 1 mm. Stomach and bowel: Unremarkable. No obstruction. No mucosal thickening. Appendix: Normal appendix. Intraperitoneal space: Trace free fluid, likely physiologic. No free air. Vasculature: Unremarkable. No abdominal aortic aneurysm. Lymph nodes: Unremarkable. No enlarged lymph nodes. Urinary bladder: Urinary bladder is decompressed, limiting evaluation. Reproductive: Unremarkable as visualized. Bones/joints: Unremarkable. No acute fracture. Soft tissues: Small fat containing umbilical hernia. IMPRESSION: 1. Severe right hydroureteronephrosis, with a 5 mm calculus in the distal right ureter at the UVJ. 2. At least 6 tiny nonobstructive right renal calculi, measuring up to 2 mm. 3. At least 5 punctate nonobstructive left renal calculi, measuring up to 1 mm. 4. Trace free fluid, likely physiologic. 5. Normal appendix. 6. Small fat containing umbilical hernia.
[2022-10-12 03:15] LABS: Microscopic, Urine URINE MICROSCOPIC (MICROSCOPIC)
[2022-10-12 03:16] LABS: Appearance,Urine SL CLOUDY (Clear); Bilirubin,Urine Negative (Negative); Blood, Urine TRACE-I (Negative); Color,Urine YELLOW (Yellow); Glucose,Urine (UA) Negative (Negative); Ketones,Urine Negative (Negative); Leukocyte Esterase,Urine TRACE (Negative); Nitrate,Urine Negative (Negative); Protein,Urine Negative (Negative); Specific Gravity, Urine >= 1.030 (1.005-1.030); Urobilinogen,Urine 0.2 EU/dl (0.2)
--- NOTE | 2022-10-12 03:18 | HMH.EDGENADL ---
Discharge Plan Disposition Patient Disposition: Home, Self-Care Condition: Good Prescriptions Prescriptions: New tamsulosin [Flomax] 0.4 mg capsule 0.4 mg PO DAILY Qty: 7 0RF oxycodone-acetaminophen [Percocet] 5-325 mg tablet 1 tab PO Q6H PRN (Reason: pain (scale score 4-6)) Qty: 20 0RF Referrals Follow up/Referrals: Jose Luis Hollis MD [Primary Care Provider] - See instructions Activity Restrictions/Add. Instructions Additional Instructions/Restrictions: Dr. Jerry Bolden MD - [facility] Address: [address] [place] [address] Hours: Closed Opens 8AM Hernan Falk Jr. Day might affect these hours Clinical Impressions Clinical Impression: Nephrolithiasis, Hydronephrosis, Renal colic on right side Instructions Patient Instructions: DI for Low Back Pain, DI for Kidney Stones, DI for Hydronephrosis-Adult, Oxycodone, Tamsulosin Discharge ED Provider: Jayesh Ward General Adult HPI General Chief complaint: Back Pain/Injury Stated complaint: Pain in lower back,difficulty voiding Time Seen by Provider: 10/12/22 03:01 History of Present Illness HPI narrative: 41-year-old female with no significant chronic past medical issues, presents with right flank pain, reports associated dysuria, started approximately 2 days ago and is gradually worsened. She had taken tramadol that was provided to her at home from her with some relief overnight however pain recurs she had a second 1 and had no relief from that. She appears in moderate distress. Reports associated nausea, denies hematuria, vomiting, fevers, chills, back pain, diarrhea, constipation or any other symptoms. Denies vaginal bleeding or discharge. The addition of the tramadol she had taken ibuprofen. She states there is significant kidney stone history in the family and she thinks she may have had them previously but nothing this severe. Related Data Previous Rx's Medication Instructions Recorded oxycodone-acetaminophen 5 mg-325 1 tab PO Q6H PRN pain (scale score 10/12/22 mg tablet (Percocet) 4-6) #20 tabs tamsulosin 0.4 mg capsule (Flomax) 0.4 mg PO DAILY #7 caps 10/12/22 Allergies Allergy/AdvReac Type Severity Reaction Status Date / Time No Known Allergies Allergy Verified 11/19/18 23:30 [facility] Disclaimer: The information contained in this section may have been updated after the patient was seen, as this information can be updated by other users. Social History Smoking Status: Never smoker alcohol intake: never current occupational status: unemployed Travel in the last 8 weeks: None household members: children housing: house current occupational exposures/hazards: No ROS Obtained: Yes All systems reviewed & no additional complaints except as documented Physical Exam General General appearance: alert and in distress Head Head exam: atraumatic, normocephalic and normal inspection Eye Eye exam: Present normal appearance, PERRL and EOMI ENT ENT exam: Present normal exam, normal oropharynx, mucous membranes moist, TM's normal bilaterally and normal external ear exam Neck Neck exam: Present normal inspection, full ROM and trachea midline; Absent meningismus or lymphadenopathy Chest Chest inspection: Present normal inspection and symmetric chest wall rise; Absent tenderness Respiratory Respiratory exam: Present normal lung sounds bilaterally; Absent respiratory distress Cardiovascular Cardiovascular exam: Present regular rate and normal rhythm; Absent JVD Abdominal Exam Abdominal exam: Present soft, tenderness (Significant right CVA tenderness) and normal bowel sounds; Absent distention or guarding Extremities Exam Extremities exam: Present normal inspection, full ROM and normal capillary refill; Absent calf tenderness Back Exam Back exam: Present
[2022-10-12 03:20] LABS: Bacteria,Urine Trace /lpf; WBC,Urine 20-50 #/hpf (0-3)
[2022-10-12 03:22] VITALS: BP 113/84; PULSE 73; RESP 18; TEMP 36.6; O2SAT 98; BMI 22.1
[2022-10-12 03:25] VITALS: O2SAT 96
[2022-10-12 03:26] LABS: Basophils # 0.1 K/mm3 (0-0.2); Basophils % 0.9 % (0.1-2.0); Eosinophils # 0.2 K/mm3 (0.0-0.4); Eosinophils % 3.7 % (0.1-12.0); Hematocrit 39.6 % (37.0-47.0); Hemoglobin 13.2 g/dL (12.2-16.2); Lymphocytes # 1.3 K/mm3 (0.7-4.5); Lymphocytes % 22.1 % (10-50); Mean Corpuscular HGB Conc 33.3 g/dL (31.8-35.4); Mean Corpuscular Hemoglobin 30.1 pg (27.0-31.2); Mean Corpuscular Volume 90.5 fl (81-99); Mean Platelet Volume 7.4 fl (7.4-10.4); Monocytes # 0.1 K/mm3 (0.1-1.0); Neutrophils # 4.1 K/mm3 (1.8-7.8); Neutrophils % 72.3 % (37.0-80.0); Platelet Count 308 K/mm3 (142-424); Red Blood Count 4.37 M/mm3 (4.20-5.40); Red Cell Distribution Width 13.4 % (11.5-17.5); White Blood Count 5.7 K/mm3 (4.8-10.8)
[2022-10-12 03:51] LABS: HCG Qualitative, Serum Negative (Negative)
[2022-10-12 03:54] LABS: Chloride 106 mmol/L (98-107); Potassium 3.8 mmoL/L (3.5-5.1); Sodium 137 mmol/L (136-145)
[2022-10-12 03:56] LABS: Alanine Aminotransferase 17 U/L (12-78); Aspartate Amino Transferase 23 U/L (14-36); Blood Urea Nitrogen 12 mg/dl (7-17); Creatinine Clearance Estimated 82 mL/min (50-200); Estimated Glomerular Filt Rate 79 ml/min (>60); GFR (African American) 95 ML/MIN (>60)
[2022-10-12 03:57] LABS: Albumin Level 4.1 g/dl (3.5-5.0); Albumin/Globulin Ratio 1.5 (1.1-1.8); Alkaline Phosphatase 64 U/L (38-126); Anion Gap 9.8 mEq/L (5-15); Bilirubin,Total 0.3 mg/dl (0.2-1.3); Calcium 8.3 mg/dl (8.4-10.2); Carbon Dioxide 25 mmol/L (22.0-30.0); Globulin 2.8 g/dL (1.3-3.2); Glucose 118 mg/dl (74-100); Total Protein,Serum 6.9 g/dl (6.3-8.2)
--- NOTE | 2022-10-12 04:20 | PC.NURSE ---
Dr. Ward at [facility] updating pt on results
[2022-10-12 04:41] VITALS: BP 110/74; PULSE 68; RESP 17; TEMP 36.8; O2SAT 97
== END 2022-10-12 04:47 | disposition home or self-care (01) ==
PROVIDERS: Emergency Provider Emergency Medicine; PCP Family Medicine
DX: N20.0 Calculus of kidney (principal); N13.30 Unspecified hydronephrosis; N23 Unspecified renal colic
CPT/HCPCS: 74176; 80053; 81001; 84703; 85025; 87086; 87088; 87186; 96374; 96375; 99285; J2405

== ENCOUNTER 2025-08-22 11:02 | Outpatient (CLI) | payer BC, SELFPAY ==
--- NOTE | 2025-08-22 11:05 | CA_ITS ---
FINAL REPORT CLINICAL HISTORY: redness with heat in [place] after being in a leg folded position > 3 hours yesterday FINDINGS: DUPLEX VENOUS SONOGRAPHY OF THE LEFT LOWER EXTREMITY Multiple transverse and longitudinal scans were performed of the femoropopliteal deep venous system, with augmentation and compression maneuvers. Normal phasic flow was noted in the visualized deep venous system. No intraluminal increased echogenicity is noted to suggest thrombus. There is normal compression and augmentation of the venous structures. No abnormal venous collaterals are seen. IMPRESSION: No evidence of deep venous thrombosis of the left lower extremity. Reviewed, Interpreted and Dictated by Wendy Samayoa MD Transcribed by Darlene Brooks Authenticated and [facility]
--- OUTSIDE RECORDS SUMMARY | 2025-08-22 11:08 | XMS_ITS | Clinical Summary ---
Author Organization [email or web address] ([place], [place], [place], [place], [place]) Address [address] [place] [address] Care Team Providers Care Senior Sql Database Developer Name Role Phone Jose Martin MD Primary Care Provider + [phone] Allergies No known active allergies Medications ciprofloxacin HCl (CIPRO) 500 MG tablet Take 1 tablet (500 mg total) by mouth every 12 (twelve) hours. 10 tablet 11/05/2022 Active Social History Tobacco Use Types Packs/Day Years Used Date Smoking Tobacco: Never Smokeless Tobacco: Never Alcohol Use Standard Drinks/Week Comments Never 0 (1 standard drink = 0.6 oz pur e alcohol) Food Insecurity Answer Date Recorded Food run out past 12 months Not on file 09/28 Food did not last past 12 months Not on file 10/16/2023 Employment Answer Date Recorded Help finding and keeping a job Not on file 0 10/16/2023 Family and Community Support Answer [place] e Recorded Help with Day to Day Activities Not on file 10/16/2023 Feeling Lonely or Isolated Not on file 10/16 Educational Attainment Answer Date Brock rded Speak language other than Ghanaian at home Not on file 10/16/2023 Want help with school or training Not on file 10/16/2023 Substance Use Answer Date Recorded Used prescription meds for non-medical reasons N ot on file 10/16/2023 Used illegal drugs past 12 months Not on file 10/16/2023 Comments No Sex and Gender Information Value Date Recorded Sex Assigned at Not on file Legal Sex Female 11:00 AM [employer] ASST Gender Identity Not on file Sexual Orientation Not on file Last Filed Vital Signs Vital Sign Reading Time Taken Comments Blood Pressure 114/76 11/05/2022 9:08 AM EST Pulse 72 11/05/2022 9:08 AM EST Temperature 36.3 C (97.3 F) 11/05/2022 9:05 AM EST Respiratory Rate 16 11/05/2022 9:08 AM EST Oxygen Saturation 98% 11/05/2022 9:08 AM EST Inhaled Oxygen Concentration - - Weight 59.9 kg (132 lb) 11/05/2022 6:00 AM EST Height 160 cm (5' 3 ) 11/05/2022 6:00 AM EST Body Mass Index 23.38 11/05/2022 6:00 AM EST Plan of Treatment Health Maintenance Due Date Last Done Comments CT Colonography 1979 Colonoscopy 1979 Colorectal Cancer Screening 1979 FOBT/FIT 1979 Fit-DNA (Cologuard) 1979 Sigmoidoscopy 1979 Depression Screening (12+) 1991 Tobacco Cessation Counseling and Screening (12+) 1991 HIV Screening 1994 Hepatitis C Screening 1997 DTAP/TDAP/TD VACCINES (1 - Tdap) 1998 Pap Smear 2000 Breast Cancer Screening 2019 Lipid Panel 2024 COVID-19 VACCINE (1 - 2023-2 5 season) 2025 Influenza Vaccine (#1) 2025 Pneumococcal Vaccine: 0-49 Years Aged Out No longer eligible based on patient's age to complete this topic Insurance BLUE CROSS/BLUE SHIELD Care Teams Senior Sql Database Developer Relationship Specialty Start Date End Date Jose Martin MD [address] [facility] [address] [place] [phone] PCP - General Family Medicine 11/05/22
--- OUTSIDE RECORDS SUMMARY | 2025-08-22 11:08 | XMS_ITS | Referral Summary ---
Author Organization [employer] ([place], [place], [place], [place], [place]) Address [address] [place] [address] Care Team Providers Care Veterinary Bacteriologist Name Role Phone Jose Martin MD Primary Care Provider + [phone] Allergies No known active allergies Medications ciprofloxacin [...] Date Brock rded Speak language other than [place] at home Not on file 10/16/2023 Want help with school or training Not on file 10/16/2023 Substance Use Answer Date Recorded Used prescription meds for non-medical reasons N ot on file 10/16/2023 Used illegal drugs past 12 months Not on file 10/16/2023 Comments No Sex and Gender Information Value Date Recorded Sex Assigned at Not on file Legal Sex Female 11:00 AM G[employer]NER[employer] MATE M Gender Identity Not on file Sexual Orientation [...] 11/05/2022 6:00 AM EST Plan of Treatment Not on file Insurance BLUE CROSS/BLUE SHIELD Care Teams Veterinary Bacteriologist Relationship Specialty Start Date End Date Jose Martin MD [address] [facility] [address] [place] [phone] PCP - General Family Medicine 11/05/22
--- OUTSIDE RECORDS SUMMARY | 2025-08-22 11:08 | XMS_ITS | Clinical Summary ---
Author Organization [facility] Address [address] [place] [address] Care Team Providers Care Biodiesel Engineering Manager Name Role Phone Jose Luis Hollis MD Primary Care Provider Allergies No known active allergies Medications linaCLOtide (LINZESS PO) Linzess Active cetirizine (zyrTEC) 5 MG tablet Take 1 tablet by mouth Daily. Active fluticasone (FLOVENT HFA) 44 MCG/ACT inhaler Inhale 1 puff 2 (Two) Times a Day. Active Active Problems Problem Noted Date Diagnosed Date ASCUS with positive high risk HPV cervical 10/02 Immunizations Immunization Administration Dates Next Due Fluzone (or Fluarix & Flulav al for VFC) >6mos 09/06/2018,06/16/2017,08/10/2016 Hepatitis A 05/08/2019,09/06/2018 Tdap 09/06/2018 Family History Medical History Relation Name Comments Diabetes Father Yang Type II Hypertension Father Yang Colon cancer Maternal Aunt Hayde Stroke Mother Pat TIA Colon cancer Paternal Grandfather Umair Pulmonary embolism Paternal Grandmother Jeanine Breast cancer Neg Hx Deep vein thrombosis Neg Hx Ovarian cancer Neg Hx Uterine cancer Neg Hx Relation Name Status Comments Father Yang Maternal Aunt Hayde Mother Pat Paternal Grandfather Umair Paternal Grandmother Jeanine Social History Tobacco Use Types Packs/Day Years Used Date Smoking Tobacco: Never Smokeless Tobacco: Never Tobacco Cessation:Counseling Given: Not Answered Alcohol Use Standard Drinks/Week Comments Yes 0 (1 standard drink = 0.6 oz pur e alcohol) rarely Comments No Sex and Gender Information Value Date Recorded Sex Assigned at Not on file Legal Sex Female 1:31 PM EDT Gender Identity Not on file Sexual Orientation Not on file Last Filed Vital Signs Vital Sign Reading Time Taken Comments Blood Pressure 130/80 09/30/2023 9:46 AM EST Pulse - - Temperature - - Respiratory Rate - - Oxygen Saturation - - Inhaled Oxygen Concentration - - Weight 61.7 kg (136 lb) 09/30/2023 9:46 AM EST Height 160 cm (5' 2.99 ) 09/30/2023 9:46 AM EST Body Mass Index 24.1 09/30/2023 9:46 AM EST Plan of Treatment Health Maintenance Due Date Last Done Comments Pneumococcal Vaccine 0-49 (1 of 2 - PCV) 1998 ANNUAL PHYSICAL 03/16/2023 HEPATITIS C SCREENING 03/16/2023 Annual Gynecologic Pelvic an d Breast Exam 09/03/2024 09/02/2023 COLOGUARD 2024 COLON CANCER SCREENING 5 YEA R SIGMOIDOSCOPY 2024 COLONOSCOPY 2024 COLORECTAL CANCER SCREENING 2024 CT COLONOGRAPHY 2024 FECAL OCCULT BLOOD TEST 2024 FIT Testing (1 year) 2024 INFLUENZA VACCINE 04/27/2025 09/06/2018, , 08/10/2016 MAMMOGRAM 07/28/2026 07/28/2024, 10/0 05/2024, 05/10/2023 TDAP/TD VACCINES (2 - Td or Tdap) 09/06/2028 018 Procedures Procedure Name Priority Date/Time Associated Diagnosis Comments MAMMO DIAGNOSTIC DIGITAL TOMOSYNTHESIS BILATERAL W CAD Routine 07/28/2024 9:43 AM EDT Abnormal mammogram from Last 3 Months or Most Recently Relevant to Health Maintenance Results * Mammo Diagnostic Digital Tomosynthesis Bilateral With CAD (07/28/2024 9:43 AM EDT) Anatomical Region Laterality Modality Breast Bilateral Mammography 07/28/2024 10:1 1 AM EDT Impressions 07/28/2024 10:12 AM EDT BI-RADS 2 benign findings RECOMMENDATION: Routine annual screening mammography in 1 year unless clinically indicated sooner. The standard false-negative rate of mammography is between 10% and 25%. Complex patterns or increased breast density will markedly elevate the false-negative rate of mammography. A results letter, in lay terminology, will be given to the patient at the conclusion of the exam. This report was finalized on 07/28/2024 10:[address] Meghana Silvestre MD. Narrative 07/28/2024 10:12 AM EDT EXAMINATION:US BREAST BILATERAL LIMITED-, MAMMO DIAGNOSTIC DIGITAL TOMOSYNTHESIS BILATERAL W CAD- HISTORY: 43-year-old female recalled from screening examination with tomosynthesis for asymmetries in the medial aspects of both breast TECHNIQUE: Bilateral combination 2D 3D spot compression views bilateral combination 2D 3D 90 degree lateral views and targeted bilateral breast ultrasound COMPARISON: Comparison is made to prior mammograms dating back to the patient's baseline study of 05/10/2023 FINDINGS: On additional imaging oval asymmetries persist in the posterior medial left breast and medial right breast. Targeted bilateral breast ultrasound demonstrates multiple simple cysts bilaterally accounting for the asymmetries of mammography and tomography. us Meghana Silvestre MD IMG MAMMOGRAPHY ORDERABLES Final Result from Last 3 Months or Most Recently Relevant to Health Maintenance Insurance PPO Care Teams Biodiesel Engineering Manager Relationship Specialty Start Date End Date Jose Luis Hollis MD [address] [place] [facility] [address] [place] [id number] PCP - General Family Medicine 03/15/23
== END 2025-08-22 23:59 | disposition home or self-care (01) ==
LOC: RT 11:05
PROVIDERS: PCP Family Medicine; Visit Provider Family Medicine
DX: R60.0 Localized edema (principal)
CPT/HCPCS: 93971